=== PATIENT | female | born 1985 | race Caucasian/White ===

== ENCOUNTER 2017-10-28 19:15 | Emergency (ER) | payer MEDICAID ==
--- NOTE | 2017-10-28 20:16 | ER Document Report ---
ED Extremity Problem, Upper - General Chief Complaint: Arm Pain Stated Complaint: ARM PAIN Time Seen by Provider: 10/28/17 20:03 Mode of Arrival: Ambulatory Information source: Patient Notes: Patient is a 32 year old black female comes t ER complaint of right arm tingling. She states this is the same thing it did when she found out she was several years ago. Her medical history is impertant for disability. 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 She is certain she is and does not know how to check. She denies any trauma and she does not work because of her disability. TRAVEL OUTSIDE OF THE [place] IN LAST 30 DAYS: No - HPI Patient complains to provider of: Right, Forearm, Wrist. No: Altered sensation , Injury, Pain, Weakness Onset: Other - 2 days ago Recent injury: No Where: Home Quality of pain: Other - tingling Severity of pain: Mild Pain Level: 1 Arm and Shoulder (Right): 1 - area of discomfort Associated symptoms: None Exacerbated by: Nothing Relieved by: Nothing Similar symptoms previously: Yes - when she was Recently seen / treated by doctor: No - Related Data Allergies/Adverse Reactions: No Known Allergies Allergy (Unverified 10/28/17 19:16) Past Medical History - General Information source: Patient - Social History Smoking Status: Never Smoker Cigarette use (# per day): No Chew tobacco use (# tins/day): No Smoking Education Provided: No Frequency of alcohol use: None Drug Abuse: None Occupation: disabled Lives with: Family Family History: None Patient has suicidal ideation: No Patient has homicidal ideation: No - Medical History Medical History: Other - Traumatic brain injury - Past Medical History Cardiac Medical History: Reports: None Pulmonary Medical History: Reports: None EENT Medical History: Reports: None Endocrine Medical History: Reports: None Renal/ Medical History: Reports: None Malignancy Medical History: Reports: None GI Medical History: Reports: None Review of Systems - Review of Systems Constitutional: No symptoms reported EENT: No symptoms reported Cardiovascular: No symptoms reported Respiratory: No symptoms reported Gastrointestinal: No symptoms reported Genitourinary: No symptoms reported Female Genitourinary: No symptoms reported Musculoskeletal: Muscle pain Skin: No symptoms reported Hematologic/Lymphatic: No symptoms reported Neurological/Psychological: No symptoms reported -: Yes All other systems reviewed and negative Physical Exam - Vital signs Vitals: Temp Pulse Resp BP Pulse Ox 97.8 F 98 18 112/86 H 97 10/28/17 19:38 10/28/17 19:38 10/28/17 19:38 10/28/17 19:38 10/28/17 19:38 Interpretation: Hypertensive - Notes Notes: As stated earlier patient is an adult with a closed head injury at a young age who has significant MR. The urine was negative and patient felt a whole lot better. I still have some tenderness on the flexor tendon insertion points and feel that the ibuprofen will probably help her also we put her on a short course of the ibuprofen and have her follow-up with her primary care. Patient was more thrilled with the negative that she was for the treatment for the arm. - General General appearance: Appears well - HEENT Head: Normocephalic, Atraumatic Eyes: Normal Conjunctiva: Normal Pharynx: Normal Neck: Normal - Respiratory Respiratory status: No respiratory distress Chest status: Nontender Breath sounds: Normal Chest palpation: Normal - Cardiovascular Rhythm: Regular Heart sounds: Normal auscultation Murmur: No - Extremities General upper extremity: Tender, Normal color, Normal ROM, Normal strength, Normal temperature. No: Edema Forearm: Tender, Other - Physical exam patient's right forearm shows reproducible tenderness with flexion of the right wrist and hand at mid forearm primarily center. There is some tenderness with total extension. She also has some discomfort and tenderness with a pill packer against resistance and rotation. She has good cap refill in the nailbeds of all fingers. - Neurological Neuro grossly intact: Yes Cognition: Short term memory loss, Other - Mostly has a slight deficit in mentation in finding words but they do come out appropriately. Orientation: AAOx4 [place] Coma Scale Eye Opening: Spontaneous [place] Coma Scale Verbal: Oriented Stan Coma Scale Motor: Obeys Commands Stan Coma Scale Total: 15 Speech: Normal Motor strength normal: RUE Additional motor exam normals: Equal pill packer, Dorsiflexion Course - Re-evaluation Re-evalutation: 10/28/17 21:49 Reexamination patient after her being here for a while shows that she has some mild tendinitis of her right forearm. Patient urine was negative for . I believe that she is probably here just to get that portion of it checked because she does not know how to work home e.p.t. Given that though she was slightly tender on the dorsal aspect of the right forearm at the midportion where the attachments for the flexor tendons were located. We will treat her with ibuprofen at this time and have her ice it down and she will follow-up with her primary care sometime in the next week. - Vital Signs Vital signs: Temp Pulse Resp BP Pulse Ox 98.7 F 85 16 113/79 98 10/28/17 22:06 10/28/17 22:06 10/28/17 22:06 10/28/17 22:06 10/28/17 22:06 - Laboratory Laboratory results interpreted by me: 10/28/17 20:15 Urine Urobilinogen 4.0 H Ur Leukocyte Esterase SMALL H Urine Ascorbic Acid 40 H Discharge - Discharge Clinical Impression: Tendinitis Condition: Stable Disposition: HOME, SELF-CARE Instructions: Muscle Strain ([facility]) Additional Instructions: Home rest. Ice to the right forearm 3 times a day. Medication as prescribed. Highly recommend follow-up with your primary care provider sometime this week for further review. Should you have any concerns or problems return to ER for recheck. Prescriptions: Ibuprofen 600 mg PO TID #20 tablet
[2017-10-28 20:57] LABS: APPEARANCE,URINE CLOUDY; BILIRUBIN,URINE NEGATIVE (NEGATIVE); COLOR,URINE YELLOW; GLUCOSE, URINE NEGATIVE (NEGATIVE); KETONES,URINE NEGATIVE (NEGATIVE); LEUKOCYTE ESTERASE,URINE SMALL (NEGATIVE); NITRITE,URINE NEGATIVE (NEGATIVE); PROTEIN,URINE NEGATIVE (NEGATIVE); URINE SPECIFIC GRAVITY 1.025
[2017-10-28 22:08] VITALS: BP 113/79
== END 2017-10-28 22:08 | disposition home or self-care (01) ==
LOC: ER 19:15
DX: M77.9 Enthesopathy, unspecified (principal); R20.2 Paresthesia of skin; F79 Unspecified intellectual disabilities; Z32.02 Encounter for pregnancy test, result negative
CPT/HCPCS: 81001; 81025; 99284